=== PATIENT | female | born 1985 | race Two or more races ===

== ENCOUNTER 2017-12-25 13:31 | Emergency (ER) | payer OTHER ==
--- NOTE | 2017-12-25 14:09 | ER Document Report ---
ED General - General Chief Complaint: Breast Problem Stated Complaint: BREAST ISSUE TRAVEL OUTSIDE OF THE [place] IN LAST 30 DAYS: No - Related Data Allergies/Adverse Reactions: No Known Allergies Allergy (Verified 12/25/17 13:59) Past Medical History - Social History Smoking Status: Never Smoker Frequency of alcohol use: Social Drug Abuse: None Family History: Reviewed & Not Pertinent Patient has suicidal ideation: No Patient has homicidal ideation: No Pulmonary Medical History: Reports: Hx Asthma Renal/ Medical History: Denies: Hx Peritoneal Dialysis GI Medical History: Comment Only: Hx Gastroesophageal Reflux Disease - SOMETIMES Past Surgical History: Reports: Hx Adenoidectomy, Hx Cholecystectomy, Hx Nose Surgery - DEVIATED SEPTUM, DECEMBER 2012 - Immunizations Hx Diphtheria, Pertussis, Tetanus Vaccination: Yes Physical Exam - Vital signs Vitals: Temp Pulse Resp BP Pulse Ox 98.5 F 70 16 107/58 L 99 12/25/17 13:36 12/25/17 13:36 12/25/17 13:36 12/25/17 13:36 12/25/17 13:36 Course - Vital Signs Vital signs: Temp Pulse Resp BP Pulse Ox 98.3 F 77 18 118/64 98 12/25/17 15:36 12/25/17 15:36 12/25/17 15:36 12/25/17 15:36 12/25/17 15:36 Discharge - Discharge Clinical Impression: Breast abrasion Condition: Good Disposition: HOME, SELF-CARE Additional Instructions: The breast milk that you have expressed as well as the containers a route from home with her breast milk does not appear to have any blood or be blood-tinged. Continue breast-feeding your child. Apply moisturizing ointment to nipples to help any chafing. Follow-up with her primary care provider as directed. If symptoms become worse return to the emergency room. Return immediately for any new or worsening symptoms. Follow up with primary care provider, call tomorrow to make followup appointment. Referrals: VALERIA VILLASENOR MD [Primary Care Provider] - Follow up tomorrow
[2017-12-25 15:37] VITALS: BP 118/64
== END 2017-12-25 15:37 | disposition home or self-care (01) ==
LOC: ER 13:31
DX: S20.119A Abrasion of breast, unspecified breast, initial encounter (principal); X58.XXXA Exposure to other specified factors, initial encounter; J45.909 Unspecified asthma, uncomplicated
CPT/HCPCS: 99283

== ENCOUNTER → 2018-01-19 | Outpatient (CLI) | payer OTHER ==
--- NOTE | 2018-01-19 17:50 | WOMENS IMAGING REPORT ---
EXAM DESCRIPTION: U/S BREAST UNILAT LIMITED COMPLETED DATE/TIME: 01/19/2018 1:21 pm REASON FOR STUDY: NIPPLE DISCHARGE N64.52 NIPPLE DISCHARGE COMPARISON: Prior breast ultrasound exams 08/10/2009, 01/10/2012, 06/29/2013, 03/24/2014 TECHNIQUE: Real-time and static grayscale imaging performed of the right and left breast targeted to the area of clinical concern. Selected color Doppler images recorded. LIMITATIONS: None. FINDINGS: Patient describes bilateral nipple discharge brown in color. The right and left retroareo lar breast was examined with ultrasound. No dilated ducts. No retroareolar nodules are identified. No cysts. IMPRESSION: No suspicious findings detected by ultrasound. BIRAD: 1 Negative. RECOMMENDATION: RECOMMENDED FOLLOW-UP: If brownish nipple discharge continues, or turns frankly bloo dy, then the patient would require full workup with repeat bilateral breast ultrasound, bilateral ma mmograms and possibly MRI. COMMENT: The [employer] (ACR) has developed recommendations for screening MRI of the breasts in certain patient populations, to be used in conjunction with mammography. Breast MRI s urveillance may be appropriate for women with more than 20% lifetime risk of developing breast cancer as determined by genetic testing, significant family history of the disease, or history of mantle r adiation for Hodgkins Disease. ACR Practice Guidelines 2008. TECHNICAL DOCUMENTATION: JOB ID: [id number] [employer]- All Rights Reserved Reading location - IP/workstation name: [email or web address]
--- NOTE | 2018-01-19 17:50 | WOMENS IMAGING REPORT ---
EXAM DESCRIPTION: U/S BREAST UNILAT LIMITED COMPLETED DATE/TIME: 01/19/2018 1:21 pm REASON FOR STUDY: NIPPLE DISCHARGE N64.52 NIPPLE DISCHARGE COMPARISON: Prior breast ultrasound exams 08/10/2009, 01/10/2012, 06/29/2013, 03/24/2014 TECHNIQUE: Real-time and static grayscale imaging performed of the right and left breast targeted to the area of clinical concern. Selected color Doppler images recorded. LIMITATIONS: None. FINDINGS: Patient describes bilateral nipple discharge brown in color. The right and left retroareo lar breast was examined with ultrasound. No dilated ducts. No retroareolar nodules are identified. No cysts. IMPRESSION: No suspicious findings detected by ultrasound. BIRAD: 1 Negative. RECOMMENDATION: RECOMMENDED FOLLOW-UP: If brownish nipple discharge continues, or turns frankly bloo dy, then the patient would require full workup with repeat bilateral breast ultrasound, bilateral ma mmograms and possibly MRI. COMMENT: The [employer] (ACR) has developed recommendations for screening MRI of the breasts in certain patient populations, to be used in conjunction with mammography. Breast MRI s urveillance may be appropriate for women with more than 20% lifetime risk of developing breast cancer as determined by genetic testing, significant family history of the disease, or history of mantle r adiation for Hodgkins Disease. ACR Practice Guidelines 2008. TECHNICAL DOCUMENTATION: JOB ID: [id number] [employer]- All Rights Reserved Reading location - IP/workstation name: [email or web address]
== END ==
LOC: WI 12:18
PROVIDERS: ATTEND Family Medicine
DX: N64.52 Nipple discharge (principal)
CPT/HCPCS: 76642

== ENCOUNTER → 2018-07-07 | Outpatient (CLI) | payer OTHER ==
--- NOTE | 2018-07-07 15:10 | WOMENS IMAGING REPORT ---
EXAM DESCRIPTION: U/S BREAST UNILAT LIMITED COMPLETED DATE/TIME: 07/07/2018 11:31 am REASON FOR STUDY: LEFT BREAST LUMP N63.21 UNSPECIFIED LUMP IN THE LEFT BREAST, UPPER OUTER QUAD COMPARISON: Breast ultrasound exams 01/19/2018, 03/24/2014, 06/29/2013, 01/10/2012, 08/10/2009 TECHNIQUE: Real-time and static grayscale imaging performed of the left breast targeted to the area of clinical/mammographic concern. Selected color Doppler images recorded. LIMITATIONS: None. FINDINGS: Ultrasound of the left breast was performed in the retroareolar region in an area of the p alpable abnormality. Patient is currently breast feeding. Benign retroareolar ducts are identified. No ductal filling defects. No galactocele. No discrete c yst or solid lesion in the retroareolar region. IMPRESSION: No suspicious findings detected by ultrasound. BIRAD: 1 Negative. RECOMMENDATION: RECOMMENDED FOLLOW-UP: Follow-up as clinically indicated. COMMENT: The [employer] (ACR) has developed recommendations for screening MRI of the breasts in certain patient populations, to be used in conjunction with mammography. Breast MRI s urveillance may be appropriate for women with more than 20% lifetime risk of developing breast cancer as determined by genetic testing, significant family history of the disease, or history of mantle r adiation for Hodgkins Disease. ACR Practice Guidelines 2007. TECHNICAL DOCUMENTATION: JOB ID: [id number] [employer]- All Rights Reserved Reading location - IP/workstation name: [email or web address]
== END ==
LOC: WI 10:31
PROVIDERS: ATTEND Family Medicine
DX: N63.21 Unspecified lump in the left breast, upper outer quadrant (principal)
CPT/HCPCS: 76642

== ENCOUNTER → 2019-10-15 | Outpatient (CLI) | payer OTHER ==
--- NOTE | 2019-10-15 12:18 | WOMENS IMAGING REPORT ---
EXAM DESCRIPTION: BILAT DIAGNOSTIC MAMMO W/CAD; U/S BREAST UNILATERAL, COMPL COMPLETED DATE/TIME: 10/15/2019 9:34 am; 10/15/2019 10:19 am REASON FOR STUDY: N64.4 MASTODYNIA; RT BREAST PAIN , INCLUDE AXILLA N64.4 N64.4 MASTODYNIA COMPARISON: Baseline study for mammography Multiple previous breast ultrasounds from 03/24/2014, 01/19/2018, 07/07/2018 EXAM PARAMETERS: Standard craniocaudal and mediolateral oblique views of each breast recorded using digital acquisition. Additional left breast 90 mediolateral view. Left breast and axilla ultrasound was also performed Read with the assistance of CAD: .[facility] - [employer] Version 9.2 LIMITATIONS: None. FINDINGS: RIGHT BREAST MASSES: No suspicious masses. CALCIFICATIONS: No new or suspicious calcifications. ARCHITECTURAL DISTORTION: None. ASYMMETRY: None noted. OTHER: No other significant findings. LEFT BREAST MASSES: No suspicious masses. CALCIFICATIONS: No new or suspicious calcifications. ARCHITECTURAL DISTORTION: None. ASYMMETRY: None noted. OTHER: No other significant finding. Left breast ultrasound: Left breast and axilla ultrasound was performed. No discrete masses. 4 mm anechoic simple breast cy st 3 position. No worrisome acoustic absorption. No dilated ducts. No focal findings. IMPRESSION: No mammographic evidence for malignancy bilaterally. No ultrasound findings left breast to explain history of pain. BREAST DENSITY: d. The breasts are extremely dense, which lowers the sensitivity of mammography. BIRAD: ASSESSMENT: 2 Benign findings. RECOMMENDATION: RECOMMENDED FOLLOW UP: Patient can continue yearly bilateral screening mammography/ tomosynthesis if found to have an elevated lifetime risk of breast cancer on breast cancer risk asses parker suggests the Anayeli model prior to age 40. Please consider tomosynthesis given extremely dense f ibroglandular tissue bilaterally. SPECIFIC INTERVENTION/IMAGING/CONSULTATION RECOMMENDED:No additional intervention/ imaging/consultati on needed at this time. COMMUNICATION:Patient notified by letter COMMENT: The patient has been notified of the results by letter per MQSA requirements. Additional no tification policies are in place for contacting patient with suspicious or incomplete findings. Quality ID #225: The [employer] recommends an annual screening mammogram for women aged 40 years or over. This facility utilizes a reminder system to ensure that all patients receive reminder letters, and/or direct phone calls for appointments. This includes reminders for routine scr eening mammograms, diagnostic mammograms, or other Breast Imaging Interventions when appropriate. Th is patient will be placed in the appropriate reminder system. TECHNICAL DOCUMENTATION: FINDING NUMBER: (1) ASSESSMENT: (1) JOB ID: [id number] [employer]- All Rights Reserved Reading location - IP/workstation name: [email or web address]
--- NOTE | 2019-10-15 12:18 | WOMENS IMAGING REPORT ---
EXAM DESCRIPTION: BILAT DIAGNOSTIC MAMMO W/CAD; U/S BREAST UNILATERAL, COMPL COMPLETED DATE/TIME: 10/15/2019 9:34 am; 10/15/2019 10:19 am REASON FOR STUDY: N64.4 MASTODYNIA; RT BREAST PAIN , INCLUDE AXILLA N64.4 N64.4 MASTODYNIA COMPARISON: Baseline study for mammography Multiple previous breast ultrasounds from 03/24/2014, 01/19/2018, 07/07/2018 EXAM PARAMETERS: Standard craniocaudal and mediolateral oblique views of each breast recorded using digital acquisition. Additional left breast 90 mediolateral view. Left breast and axilla ultrasound was also performed Read with the assistance of CAD: .COUNT INCLUDES THE [facility] - [email or web address] Medical Assisting Program Director Version 9.2 LIMITATIONS: None. FINDINGS: RIGHT BREAST MASSES: No suspicious masses. CALCIFICATIONS: No new or suspicious calcifications. ARCHITECTURAL DISTORTION: None. ASYMMETRY: None noted. OTHER: No other significant findings. LEFT BREAST MASSES: No suspicious masses. CALCIFICATIONS: No new or suspicious calcifications. ARCHITECTURAL DISTORTION: None. ASYMMETRY: None noted. OTHER: No other significant finding. Left breast ultrasound: Left breast and axilla ultrasound was performed. No discrete masses. 4 mm anechoic simple breast cy st 3 position. No worrisome acoustic absorption. No dilated ducts. No focal findings. IMPRESSION: No mammographic evidence for malignancy bilaterally. No ultrasound findings left breast to explain history of pain. BREAST DENSITY: d. The breasts are extremely dense, which lowers the sensitivity of mammography. BIRAD: ASSESSMENT: 2 Benign findings. RECOMMENDATION: RECOMMENDED FOLLOW UP: Patient can continue yearly bilateral screening mammography/ tomosynthesis if found to have an elevated lifetime risk of breast cancer on breast cancer risk asses parker suggests the Anayeli model prior to age 40. Please consider tomosynthesis given extremely dense f ibroglandular tissue bilaterally. SPECIFIC INTERVENTION/IMAGING/CONSULTATION RECOMMENDED:No additional intervention/ imaging/consultati on needed at this time. COMMUNICATION:Patient notified by letter COMMENT: The patient has been notified of the results by letter per MQSA requirements. Additional no tification policies are in place for contacting patient with suspicious or incomplete findings. Quality ID #225: The [employer] recommends an annual screening mammogram for women aged 40 years or over. This facility utilizes a reminder system to ensure that all patients receive reminder letters, and/or direct phone calls for appointments. This includes reminders for routine scr eening mammograms, diagnostic mammograms, or other Breast Imaging Interventions when appropriate. Th is patient will be placed in the appropriate reminder system. TECHNICAL DOCUMENTATION: FINDING NUMBER: (1) ASSESSMENT: (1) JOB ID: [id number] [employer]- All Rights Reserved Reading location - IP/workstation name: [email or web address]
== END ==
LOC: WI 09:15
PROVIDERS: ATTEND Family Medicine
DX: N64.4 Mastodynia (principal)
CPT/HCPCS: 76641; 77066

== ENCOUNTER → 2019-10-15 | Outpatient (CLI) | payer OTHER ==
--- NOTE | 2019-10-15 11:39 | RADIOLOGY REPORT (SQ) ---
EXAM DESCRIPTION: SCOLIOSIS SERIES COMPLETED DATE/TIME: 10/15/2019 11:06 am REASON FOR STUDY: SCOLIOSIS Z20.5 CONTACT WITH AND (SUSPECTED) EXPOSURE TO VIRAL HEPATIT Z00.01 EN COUNTER FOR GENERAL ADULT MEDICAL EXAM W ABNORMAL F R20.2 PARESTHESIA OF SKIN COMPARISON: None. NUMBER OF VIEWS: One view. TECHNIQUE: Standing AP exam of the thoracolumbar spine with measurement of the WHITE angles. LIMITATIONS: None. FINDINGS: GENERALIZED BONY FINDINGS: No anomalies. No worrisome bone lesions. THORACIC SPINE: APEX: T3-4 ANGULATION: Left DEGREES: 8 THORACIC SPINE: APEX: T11-12 ANGULATION: Right DEGREES: 6 LUMBAR SPINE: APEX: L3-4 ANGULATION: Left DEGREES: 10 CHANGE: Not applicable - no prior studies. OTHER: No other significant findings. IMPRESSION: SCOLIOSIS WITH MEASUREMENTS ABOVE. TECHNICAL DOCUMENTATION: JOB ID: [id number] [email or web address]- All Rights Reserved Reading location - IP/workstation name: [email or web address]
[2019-10-15 11:47] LABS: ABSOLUTE BASOPHILS # (AUTO) 0.1 10^3/uL (0.0-0.2); ABSOLUTE EOSINOPHILS # (AUTO) 0.5 10^3/uL (0.0-0.6); ABSOLUTE LYMPHOCYTES (AUTO) 1.9 10^3/uL (0.5-4.7); ABSOLUTE MONOCYTES (AUTO) 0.5 10^3/uL (0.1-1.4); ABSOLUTE NEUT (AUTO) 4.9 10^3/uL (1.7-8.2); EOSINOPHILS % (AUTO) 6.3 % (0-6); HEMATOCRIT 39.4 % (36.0-47.0); HEMOGLOBIN 13.4 g/dL (12.0-15.5); LYMPHOCYTES % (AUTO) 23.8 % (13-45); MEAN CORPUSCULAR HEMOGLOBIN 28.4 pg (27.0-33.4); MEAN CORPUSCULAR HGB CONC 34.1 g/dL (32.0-36.0); MEAN CORPUSCULAR VOLUME 83 fl (80-97); MONOCYTES % (AUTO) 6.7 % (3-13); PLATELET COUNT 365 10^3/uL (150-450); RED BLOOD COUNT 4.73 10^6/uL (3.72-5.28); RED CELL DISTRIBUTION WIDTH 14.2 % (11.5-14.0); SEGMENTED NEUTROPHILS % (AUTO) 62.2 % (42-78); TOTAL CELLS COUNTED % (AUTO) 100 %; WHITE BLOOD COUNT 7.8 10^3/uL (4.0-10.5)
[2019-10-15 12:25] LABS: ALBUMIN 4.5 g/dL (3.5-5.0); ALKALINE PHOSPHATASE 64 U/L (38-126); ANION GAP 12 (5-19); ASPARTATE AMINO TRANSFERASE 22 U/L (14-36); BILIRUBIN,DIRECT 0.3 mg/dL (0.0-0.4); BILIRUBIN,TOTAL 0.5 mg/dL (0.2-1.3); BLOOD UREA NITROGEN 12 mg/dL (7-20); CALCIUM 9.6 mg/dL (8.4-10.2); CARBON DIOXIDE 28 mmol/L (22-30); CHLORIDE 100 mmol/L (98-107); GLUCOSE 80 mg/dL (75-110); POTASSIUM 4.2 mmol/L (3.6-5.0); TOTAL PROTEIN 8.2 g/dL (6.3-8.2)
[2019-10-16 06:36] LABS: HEPATITIS C VIRUS AB <0.1 s/co ratio (0.0-0.9)
[2019-10-16 08:28] LABS: HEPATITIS B CORE AB TOT Negative (Negative)
[2019-10-18 07:12] LABS: HEPATITIS BE AB Negative (Negative)
== END ==
LOC: OD 10:39
PROVIDERS: ATTEND Family Medicine
DX: Z20.5 Contact with and (suspected) exposure to viral hepatitis (principal); R20.2 Paresthesia of skin; E06.3 Autoimmune thyroiditis; Z11.4 Encounter for screening for human immunodeficiency virus [HIV]; M41.9 Scoliosis, unspecified
CPT/HCPCS: 36415; 72082; 80053; 82607; 84443; 85025; 86317; 86701; 86704; 86707; 86803; 86804